=== PATIENT | male | born 1980 | race Caucasian/White ===

== ENCOUNTER 2025-01-09 07:22 | Day surgery (SDC) | payer BC, SELFPAY ==
[2024-12-21 13:21] VITALS: BMI 24.3
--- NOTE | 2024-12-21 13:37 | SUR.PREOP ---
Spoke to the patient. He stated he was just diagnosed with a left rib fracture and possible left arm fracture but had not received a final report on his left arm but knew for sure that he had a rib fracture. Pt was advised to call and reschedule his procedure until stable.
[2025-01-01 12:50] VITALS: BMI 24.3
[2025-01-09 07:41] VITALS: BP 121/75; PULSE 72; RESP 18; TEMP 36.9; O2SAT 97
[2025-01-09] MEDS: LACTATED RINGERS 1000ML 1,000 ML 50 ML IV (07:46)
--- NOTE | 2025-01-09 07:57 | EXP.HP ---
History of Present Illness *Admission Date: 01/09/25 *History of present illness: Mr. Preston is a 44-year-old gentleman who is here for GI evaluation and discussion of digestive symptoms. The patient primarily states that over the last 1 to 2 years, he has lost weight and finds it more difficult to maintain weight. He was at 190 pounds and dropped down to 164 pounds. He is eating well over 5000 lee a day and now is at 175 pounds. He has had thyroid testing which was normal. He has had other extensive testing including broad lab testing and functional testing and imaging which is all been normal. The patient has had some longstanding loose stools. His functional testing did show a borderline low elastase at 433. His functional testing also showed occult FIT testing of 2 and normal is less than 10. He was told that he still had a trace of blood detected. His gut microbiome testing functionally did show the presence of enterohemorrhagic E. coli and Palma. The patient was on a broader probiotic prescribed by functional medicine. He has not had EGD or colonoscopy. His testing did show high secretory IgA but his antigliadin IgA antibody was normal. He was told that he had a gluten allergy. The patient primarily reports gassiness, bloating and loose stools which have been chronic. He does note oily stools at times. The patient did do low FODMAP years ago. The patient's primary concern is the weight loss and the blood detected in his stool. [facility] Disclaimer: The information contained in this section may have been updated after the patient was seen, as this information can be updated by other users. Medical History BPH (benign prostatic hyperplasia) Anxiety Surgical History History of laminectomy H/O hand surgery Family History Father Stroke Social History Smoking Status: Former smoker alcohol intake: former substance use type: denies use current occupational status: employed Travel in the last 8 weeks?: Inside the [place] Have you lived/traveled outside US in past 30 days?: No Contact w/someone who lives/traveled outside US past 30 days?: No Exposure to someone with infectious disease in past 14 days?: No Do you have a fever (greater than 100.4 F or 38 C)?: No Have you tested positive for COVID-19?: No Exposed to someone with COVID-19 in past 14 days?: No Do you have a sore throat?: No Do you have a cough?: No Do you have any weakness?: No Do you have any diarrhea?: No Are you experiencing any unusual bleeding?: No Do you have any muscle aches/pain?: No Do you have any abdominal pain?: No Are you experiencing loss of taste or smell?: No Review of Systems Review of Systems Review of systems (narrative): Negative *Cardiovascular Comments: Negative *Gastrointestinal Comments: Negative *Genitourinary Comments: Negative *Musculoskeletal Comments: Negative *Neurologic Comments: Negative Meds Home Medications and Allergies Home Medications ?Medication ?Instructions ?Recorded ?Confirmed ?Type escitalopram oxalate 10 mg tablet 10 mg PO DAILY 11/13/24 12/21/24 History finasteride 1 mg tablet 1 mg PO DAILY 11/13/24 12/21/24 History fluticasone propionate 50 1 spray intranasal DAILY 11/13/24 12/21/24 History mcg/actuation nasal spray,suspension snqwtqthsxps-G7-[id number]-B12 6 mg-5 1 tab PO DAILY 11/13/24 12/21/24 History mg-50 mg-1 mg tablet (Cerefolin) jlayuj-rzdnuljt-jxymydv 1 cap PO .With meals #100 caps 11/13/24 12/21/24 Rx 36,000-114,000-180,000 unit capsule,delay rel (Creon) loratadine 10 mg tablet (Claritin) 10 mg PO DAILY PRN Allergic 11/13/24 12/21/24 History Symptoms omega-3 acid ethyl esters 1 gram 2 cap PO ONCE 11/13/24 12/21/24 History capsule prasterone (DHEA) 25 mg tablet 25 mg PO DAILY 11/13/24 12/21/24 History (DHEA) psyllium husk (with sugar) 3 1 tbsp PO DAILY 11/13/24 12/21/24 History gram/12 gram oral powder (Konsyl (sugar)) sod picosulf 10 mg-magnes 3.5 175 ml PO DAILY Bowel Prep 2 doses 12/12/24 12/21/24 Rx gram-citric 12 gram/175 mL oral #350 mL solution (Clenpiq) New Prescriptions to Start Prescriptions: Allergies Allergy/AdvReac Type Severity Reaction Status Date / Time No Known Allergies Allergy Verified 01/01/25 10:26 Exam Data for Last 24 hours Vital signs and Labs for Last 24 Hours: Temp Pulse Resp BP Pulse Ox O2 Del Method 98.5 F 72 18 121/75 97 Room Air 01/09/25 07:41 01/09/25 07:41 01/09/25 07:41 01/09/25 07:41 01/09/25 07:41 01/09/25 07:41 *Routine HEENT Exam Head: Present normocephalic Eye: Present EOMI and PERRL ENT: Present mucous membranes moist *Routine Neck Exam Neck: Present supple *Routine Respiratory Exam Respiratory: Present CTA bilaterally *Routine Cardiovascular Exam Cardiovascular: Present RRR *Routine Abdominal Exam Abdominal: Present soft and normoactive bowel sounds; Absent tenderness *Routine Rectal Exam Rectal:: deferred *Routine Genitalia Exam Genitalia:: deferred *Routine Extremities Exam Extremities: Absent cyanosis, clubbing or edema *Routine Skin Exam Skin: Present warm; Absent rash *Routine Neurological Exam Neurological: Present alert and oriented X3 Assessment and Plan *Assessment and plan (1) Unexplained weight loss: Status: Acute Category: Medical Code(s): R63.4 - Abnormal weight loss (2) Occult blood positive stool: Status: Acute Category: Medical Code(s): R19.5 - Other fecal abnormalities (3) Loose stools: Status: Acute Category: Medical Code(s): R19.5 - Other fecal abnormalities (4) Gassiness: Status: Acute Category: Medical Code(s): R14.0 - Abdominal distension (gaseous) (5) Exocrine pancreatic insufficiency: Status: Acute Category: Medical Code(s): K86.81 - Exocrine pancreatic insufficiency Plan A/P: 1. Hemoccult positive stool with unexplained weight loss and loose stools is the preprocedural diagnosis. The patient will be anesthetized/sedated using MAC sedation. The patient has been seen and examined. Cardiac and lung assessment prior to the examination is stable. Proceed with planned diagnostic EGD and colonoscopy.
--- NOTE | 2025-01-09 07:59 | P.PNANES_ITS ---
[facility] Disclaimer: The information contained in this section may have been updated after the patient was seen, as this information can be updated by other users. Medical History BPH (benign prostatic hyperplasia) Anxiety Surgical History History of laminectomy H/O hand surgery Family History Father Stroke Social History Smoking Status: Former smoker alcohol intake: former substance use type: denies use current occupational status: employed Travel in the last 8 weeks?: Inside the [place] Have you lived/traveled outside US in past 30 days?: No Contact w/someone who lives/traveled outside US past 30 days?: No Exposure to someone with infectious disease in past 14 days?: No Do you have a fever (greater than 100.4 F or 38 C)?: No Have you tested positive for COVID-19?: No Exposed to someone with COVID-19 in past 14 days?: No Do you have a sore throat?: No Do you have a cough?: No Do you have any weakness?: No Do you have any diarrhea?: No Are you experiencing any unusual bleeding?: No Do you have any muscle aches/pain?: No Do you have any abdominal pain?: No Are you experiencing loss of taste or smell?: No [facility] Anesthesia Checklist Patient Identification Patient Identification: Arm Band and Verbal (Name & ) Structural Data Admitted From: Home Planned Operative Procedure/s: EGD + Colonoscopy Consent for Planned Operative Procedure(s) Verified: Yes Verified Documents: Surgical Consent NPO Status Verified Time NPO: 00:00 Additional verifications Anesthesia Reactions: No Airway Assessment Mallampati Score:: Class II C-Spine Mobility Assessed: Yes TMJ Mobility Assessed: Yes Dentition: Good Dentition Neurological Assessment Level of Consciousness: Awake, Alert and Appropriate Hx Seizures: No Numbness or tingling in extremities: No Anesthesia Plan Anesthesia Risk discussed: Yes Anesthesia Plan: Verified ASA Class: II Anesthesia Type: MAC
--- NOTE | 2025-01-09 08:33 | HMH.PROCNOTE ---
[facility] Procedure Note Date: 01/09/25 Time: 08:41 Procedure Note:: Upper Endoscopy Procedure Report: Esophagogastroduodenoscopy with cold biopsies Endoscopost: Gunnar Everett II, MD Referring Physician: Zeke Kirk MD, [address], [place] [address] Date of Procedure: January 09, 2025 Equipment: Olympus [id number]-1100 standard upper endoscope Sedation: MAC sedation Indications: Mr. Preston is a 44-year-old gentleman who is here diagnostic upper endoscopy and colonoscopy. The patient states that over the last 1 to 2 years, he has lost weight and finds it more difficult to maintain weight. He was at 190 pounds and dropped down to 164 pounds. He is eating sometimes well over 5000 lee a day and now is at 175 pounds. He has had thyroid testing which was normal. He has had other extensive testing including broad lab testing and functional testing and imaging which has all been normal. The patient has had some longstanding loose stools. His functional testing did show a borderline low elastase at 433. His functional testing also showed occult FIT testing of 2 and normal is less than 10. He was told that he still had a trace of blood detected. His gut microbiome testing functionally did show the presence of enterohemorrhagic E. coli and Palma. The patient was on a broader probiotic prescribed by functional medicine. He has not had EGD or colonoscopy. His testing did show high secretory IgA but his antigliadin IgA antibody was normal. He was told that he had a gluten allergy. The patient primarily reports gassiness, bloating and loose stools which have been chronic. He does note oily stools at times. The patient did do low FODMAP years ago. The patient's primary concern is the weight loss and the blood detected in his stool. The patient has started Creon and Konsyl. He reports no dysphagia, heartburn or reflux. He reports no bright red rectal bleeding, abdominal pain or family history of colon cancer. Procedure: Prior to the procedure, a history and physical exam was performed, and patient's medications and allergies were reviewed. The risks, benefits and alternatives of the sedation and procedure were discussed with the patient. All questions were answered and informed consent was obtained. The patient was brought to the procedure room. Patient identification and proposed procedure were verified by the physician and the nurse. The patient was placed in a left lateral decubitus position and the scope was passed under direct vision. Throughout the procedure, the patient's blood pressure, pulse, and oxygen saturations were monitored continuously. The upper GI endoscopy was accomplished without difficulty. The patient tolerated the procedure well. Findings: The scope was passed directly into the upper esophagus and advanced to the third and fourth portion of the duodenum. A cold biopsy was taken from the second portion of the duodenum for the disaccharidase assay. The post bulbar duodenum, major and minor ampulla and duodenal bulb were normal with normal mucosa and conniventes. The scope was withdrawn through a normal duodenal bulb and pylorus into the stomach. There was minimal linear antral gastropathy and a cold biopsy was taken from the antrum/incisura to rule out H. pylori. The body and fundus of the stomach were normal. Upon retroflexion there was no hiatal hernia. The scope was then withdrawn into the esophagus. There was no evidence of reflux esophagitis or Sierra's. There were no strictures, corrugation, furrowing or rings. There was no esophageal inlet patch. The remainder of the esophageal mucosa was normal. Impression: 1. Minimal linear antral gastropathy and otherwise normal upper endoscopy Plan: I will follow-up the gastric biopsies and disaccharidase assay. I will proceed with diagnostic colonoscopy.
--- NOTE | 2025-01-09 08:43 | P.PCN_ITS ---
[facility] Procedure Note Date: 01/09/25 Time: 08:55 Procedure Note:: Colonoscopy Procedure Report: Colonoscopy Endoscopist: Gunnar Everett II, MD Referring physician: Zeke Kirk MD, [address] [facility] [facility], [place] [address] Date of Procedure: January 09, 2025 Equipment: Olympus [id number] adult colonoscope Sedation: MAC sedation Indication: Mr. Preston is a 44-year-old gentleman who is here diagnostic upper endoscopy and colonoscopy. The patient states that over the last 1 to 2 years, he has lost weight and finds it more difficult to maintain weight. He was at 190 pounds and dropped down to 164 pounds. He is eating sometimes well over 5000 lee a day and now is at 175 pounds. He has had thyroid testing which was normal. He has had other extensive testing including broad lab testing and functional testing and imaging which has all been normal. The patient has had some longstanding loose stools. His functional testing did show a borderline low elastase at 433. His functional testing also showed occult FIT testing of 2 and normal is less than 10. He was told that he still had a trace of blood detected. His gut microbiome testing functionally did show the presence of enterohemorrhagic E. coli and Palma. The patient was on a broader probiotic prescribed by functional medicine. He has not had EGD or colonoscopy. His testing did show high secretory IgA but his antigliadin IgA antibody was normal. He was told that he had a gluten allergy. The patient primarily reports gassiness, bloating and loose stools which have been chronic. He does note oily stools at times. The patient did do low FODMAP years ago. The patient's primary concern is the weight loss and the blood detected in his stool. The patient has started Creon and Konsyl. He reports no dysphagia, heartburn or reflux. He reports no bright red rectal bleeding, abdominal pain or family history of colon cancer. Procedure: Prior to the procedure, a history and physical exam was performed, and patient's medications and allergies were reviewed. The risks, benefits and alternatives of the sedation and procedure were discussed with the patient. All questions were answered and informed consent was obtained. The patient was brought to the procedure room. Patient identification and proposed procedure were verified by the physician and the nurse. The patient was placed in a left lateral decubitus position and the scope was passed under direct vision. Throughout the proc edure, the patient's blood pressure, pulse, and oxygen saturations were monitored continuously. The colonoscopy was accomplished without difficulty. The patient tolerated the procedure well. Findings: On digital rectal examination there was normal rectal tone. There were no external hemorrhoids. The prostate was 2+, smooth, soft, symmetric without nodules. The colonoscope was introduced through the anal canal to the rectum and advanced to the cecum. The ileocecal valve and appendiceal orifice were identified. The scope was advanced a short distance into the ileum which appeared grossly normal. The scope was then withdrawn into the colon. The cecum, ascending, transverse, descending, sigmoid and rectum were grossly normal. There were no polyps or other mucosal abnormalities identified. Upon retroflexion within the rectum there were grade 1-2 internal hemorrhoids. The preparation was excellent throughout with Jadwin Preparation Score of 9. The cecal time was 10 minutes. Impression: 1. Normal colonoscopy with intubation of the terminal ileum 2. Grade 1-2 internal hemorrhoids Plan: The patient will not require surveillance colonoscopy again for 10 years by ACS guidelines. It is possible that the faint/trace Hemoccult positive was related to the internal hemorrhoids. I would recommend continuing psyllium Konsyl and Creon. I will check gastric biopsy and disaccharidase assay.
[2025-01-09 09:08] VITALS: BP 111/65; PULSE 80; RESP 18; TEMP 36.4; O2SAT 96
[2025-01-09 09:09] VITALS: BP 112/72; PULSE 71; RESP 20; O2SAT 99
[2025-01-09 09:19] VITALS: BP 131/84; PULSE 68; RESP 16; O2SAT 100
[2025-01-09 09:29] VITALS: BP 126/79; PULSE 67; RESP 18; O2SAT 100
[2025-01-14 14:25] LABS: Interpretation Notes (.); Lactase 9.2 (>/= 14.0); Maltase 101.91 (>/= 110.0); Palatinase 7.31 (>/= 8.5); Reference Notes (.); Sucrase 23.59 (>/= 25.0)
== END 2025-01-09 09:30 | disposition home or self-care (01) ==
PROVIDERS: PCP Internal Medicine; Visit Provider Internal Medicine Gastroenterology
PROC: 0DJ08ZZ Inspection of Upper Intestinal Tract, Via Natural or Artificial Opening Endoscopic (ICD-10-PCS; CPT 45378; principal; 2025-01-09 09:00)
DX: K29.50 Unspecified chronic gastritis without bleeding (principal); K64.0 First degree hemorrhoids; K64.1 Second degree hemorrhoids; K31.9 Disease of stomach and duodenum, unspecified; N40.0 Benign prostatic hyperplasia without lower urinary tract symptoms; Z87.891 Personal history of nicotine dependence; Z79.899 Other long term (current) drug therapy
CPT/HCPCS: 43239; 45378; 82657; J2003; J2704; J7120